=== PATIENT | male | born 1930 | race Caucasian/White ===

== ENCOUNTER 2018-03-09 09:45 | Outpatient (CLI) | payer MEDICARE, OTHER ==
--- NOTE | 2018-03-09 11:55 | ULT ---
ULTRASOUND ABDOMEN: Date: 03/09/18 HISTORY: Elevated LFTs. FINDINGS: There is a 2.0 cm hyperechoic nonshadowing lesion in the right lobe of the liver which may represent a hemangioma. No intrahepatic ductal dilatation is seen. The pancreas, common duct, and abdominal aor ta are not satisfactorily visualized. Multiple mobile shadowing gallstones are seen without gallbladd er wall thickening or pericholecystic fluid. IVC is present. There is suggestion of echogenic materia l within the main portal vein, suspicious for thrombosis. The spleen is normal. There is a 1.2 cm cys t in the right kidney and a 1.9 cm cyst in the left kidney. No hydronephrosis is seen on either side. No free fluid is seen. IMPRESSION: 1. Cholelithiasis. 2. Bilateral renal cysts. 3. 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 4. 2.0 cm lesion in the right lobe of the liver may represent a hemangioma. CT scan of the abdomen with and without IV contrast using the hemangioma protocol is recommended. Thi s will also evaluate the portal venous vasculature. POS: MARIBEL
== END 2018-03-09 09:46 | disposition home or self-care (01) ==
LOC: BICULT 09:45
PROVIDERS: ATTEND Internal Medicine
DX: R94.5 Abnormal results of liver function studies (principal); K80.20 Calculus of gallbladder without cholecystitis without obstruction; N28.1 Cyst of kidney, acquired; K76.9 Liver disease, unspecified
CPT/HCPCS: 76700

== ENCOUNTER 2018-03-15 10:07 | Outpatient (CLI) | payer MEDICARE, OTHER ==
[2018-03-15] MEDS ORDERED: Iopamidol 370 76% 100 ML VIAL ONE (12:30)
--- NOTE | 2018-03-15 14:09 | CT ---
CT ABDOMEN WITH AND WITHOUT CONTRAST: HISTORY: Abnormal ultrasound 03/09/2018. COMPARISON: Ultrasound 03/09/2015. TECHNIQUE: CT abdomen was performed prior to and after the intravenous administration of contrast using hemangio ma protocol. In the lung bases, area of cyst in the right lower lobe. There is bronchial wall thickening of the l eft lower lobe. No pericardial effusion. There is cholelithiasis. There is a very heterogeneous mass in the right lobe of the liver of only h epatic segments 5, 6, 7, and 8 measuring approximately 9 x 6/5 x 5.8 cm (transverse x AP x CC) with e xtension to the main portal vein as well as of the right and left branches of the portal vein. There are focal areas of arterial hyperenhancement with washout. There is arterial phase hyperenhancement of some of the portions of the mass with washout and enhanci ng capsule. There is fatty atrophy of the pancreas. The renal cortices are thin. There is a calculus in the inf erior left renal collecting system measuring 6 x 7 mm. Mild tortuosity of the aorta. 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 CODE T
== END 2018-03-15 10:08 | disposition home or self-care (01) ==
LOC: CT 10:07
PROVIDERS: ATTEND Internal Medicine
DX: R93.2 Abnormal findings on diagnostic imaging of liver and biliary tract (principal); R16.0 Hepatomegaly, not elsewhere classified
CPT/HCPCS: 74170; 82565